=== PATIENT | female | born 1940 | race Caucasian/White ===

== ENCOUNTER 2016-12-05 08:31 | Day surgery (SDC) | payer MEDICARE, OTHER ==
[~2016-12-05 08:31] MED LIST: BALANCED SALT IRRIG SOLN COMB1 500 ML, EPINEPHRINE-PF 1:1000 1 MG IO ONE; IRR STERIL WATER FOR IRR 1000 ML BOTTLE IR ONE; LABETALOL HCL 100 MG/20 ML VIAL MC ONE; PROPOFOL 200 MG/20 ML BOTTLE IV ONE
[2016-12-05] MEDS ORDERED: TETRACAINE HCL 0.5% OPHT DROP 2 ML BOTTLE ONE ×2 (08:52→09:35)
[2016-12-05] MEDS ORDERED: PHENYLEPHRINE 2.5% OPHT DROP 2 ML BOTTLE ONE (08:53)
[2016-12-05] MEDS ORDERED: CIPROFLOXACIN 0.3% OPHT DROP 2.5 ML BOTTLE ONE (08:53)
[2016-12-05] MEDS ORDERED: CYCLOPENTOLATE 1% OPHT DROP 2 ML BOTTLE ONE (08:53)
[2016-12-05] MEDS ORDERED: FLURBIPROFEN 0.03% OPHT DROP 2.5 ML BOTTLE ONE (08:53)
[2016-12-05 09:12] LABS: BASOPHILS # (AUTO) 0.1 K/uL (0.0-0.2); BASOPHILS % (AUTO) 0.8 % (0.0-2.0); EOSINOPHILS # (AUTO) 0.2 K/uL (0.0-0.7); EOSINOPHILS % (AUTO) 2.7 % (0.0-7.0); HEMATOCRIT 37.6 % (37.0-47.0); HEMOGLOBIN 12.5 g/dL (12.0-16.0); LYMPHOCYTES # (AUTO) 2.7 K/uL (0.8-4.8); LYMPHOCYTES % (AUTO) 39.5 % (20.5-51.5); MEAN CORPUSCULAR HGB CONC 33 g/dL (32.0-37.0); MEAN CORPUSCULAR VOLUME 84.4 fL (81.0-99.0); MONOCYTES # (AUTO) 0.4 K/uL (0.1-1.30); MONOCYTES % (AUTO) 6.2 % (0.0-11.0); NEUTROPHILS # (AUTO) 3.5 K/uL (1.8-8.9); NEUTROPHILS % (AUTO) 50.8 % (38.5-71.5); PLATELET COUNT (AUTO) 205 K/uL (150-450); RED BLOOD CELL COUNT(AUTO) 4.45 MIL/uL (4.20-5.40); RED CELL DISTRIBUTION WIDTH 12.4 % (11.5-14.5); WHITE BLOOD COUNT (AUTO) 6.9 K/uL (4.0-11.2)
[2016-12-05 09:16] LABS: *BILIRUBIN,URIN NEGATIVE (NEGATIVE); *BLOOD, URINE Trace-intact (NEGATIVE); *COLOR,URINE YELLOW (YELLOW); *KETONES,URINE NEGATIVE (NEGATIVE); *PROTEIN,URINE NEGATIVE (NEGATIVE); *UROBILINOGEN,URINE 0.2 E.U./dl (NORMAL); NITRITE, URINE NEGATIVE (NEGATIVE); UGLUCOSE TRACE (NEGATIVE)
[2016-12-05 09:22] LABS: CALCIUM 9.2 mg/dL (8.5-10.1); POTASSIUM 4.1 mmol/L (3.5-5.1)
[2016-12-05 09:24] LABS: *CLARITY,URINE HAZY (CLEAR); LEUKOCYTE ESTERASE ,URINE TRACE (NEGATIVE)
[2016-12-05 09:26] LABS: BACTERIA,URINE MODERATE /HPF (NONE SEEN); MUCUS,URINE FEW /LPF (0-FEW); RBC,URINE 0-3 /HPF (0-3); SQUAMOUS EPITHELIAL CELL,UR MANY /HPF (NONE SEEN); YEAST,URINE FEW /HPF (NONE SEEN)
[2016-12-05 09:29] LABS: CREATININE 1.4 mg/dL (0.6-1.3)
[2016-12-05] MEDS ORDERED: NEO/POLYMYX B/DEXAME OPHT OINT 3.5 GM TUBE ONE (09:35)
[2016-12-05] MEDS ORDERED: PILOCARPINE 1% OPHT DROP 15 ML BOTTLE ONE (09:35)
[2016-12-05] MEDS ORDERED: LIDOCAINE HCL-MPF 1% 5 ML VIAL ONE (09:36)
[2016-12-05] MEDS ORDERED: BALANCED SALT IRRIG SOLN COMB2 15 ML IRRIG.SOLN ONE (09:36)
[2016-12-05] MEDS ORDERED: EPINEPHRINE 1 MG/1 ML AMP ONE (09:36)
[2016-12-05] MEDS ORDERED: BUPIVACAINE PF 0.5% 30 ML VIAL ONE (09:37)
[2016-12-05] MEDS ORDERED: HYALURONATE SODIUM 8.5 MG/0.85 ML DISP.SYRIN ONE (09:37)
[2016-12-05] MEDS ORDERED: ONDANSETRON 4 MG/2 ML VIAL ONE (09:51)
[2016-12-05] MEDS ORDERED: hydrALAZINE HCL 20 MG/1 ML VIAL ONE (09:51)
== END 2016-12-05 12:15 | disposition home or self-care (01) ==
LOC: DS 08:31
PROVIDERS: ATTEND Dermatology MOHS-Micrographic Surgery
DX: H25.9 Unspecified age-related cataract (principal); M19.90 Unspecified osteoarthritis, unspecified site; I12.9 Hypertensive chronic kidney disease with stage 1 through stage 4 chronic kidney disease, or unspecified chronic kidney disease; N18.9 Chronic kidney disease, unspecified; E11.9 Type 2 diabetes mellitus without complications
CPT/HCPCS: 36415; 71010; 85025; 85730; 93005; A4217; A4663; J0171; J0360; J2405; J3490; J3590; J7030; J7120; J7321; V2632

== ENCOUNTER 2016-12-19 07:21 | Day surgery (SDC) | payer MEDICARE, OTHER ==
[~2016-12-19 07:21] MED LIST changes: -IRR STERIL WATER FOR IRR 1000 ML BOTTLE IR ONE; -LABETALOL HCL 100 MG/20 ML VIAL MC ONE; -PROPOFOL 200 MG/20 ML BOTTLE IV ONE
[2016-12-19] MEDS ORDERED: TETRACAINE HCL 0.5% OPHT DROP 2 ML BOTTLE ONE ×2 (07:39→07:50)
[2016-12-19] MEDS ORDERED: FLURBIPROFEN 0.03% OPHT DROP 2.5 ML BOTTLE ONE ×2 (07:39→07:41)
[2016-12-19] MEDS ORDERED: PHENYLEPHRINE 2.5% OPHT DROP 2 ML BOTTLE ONE (07:40)
[2016-12-19] MEDS ORDERED: CYCLOPENTOLATE 1% OPHT DROP 2 ML BOTTLE ONE (07:40)
[2016-12-19] MEDS ORDERED: CIPROFLOXACIN 0.3% OPHT DROP 2.5 ML BOTTLE ONE (07:40)
[2016-12-19] MEDS ORDERED: NEO/POLYMYX B/DEXAME OPHT OINT 3.5 GM TUBE ONE (07:49)
[2016-12-19] MEDS ORDERED: PILOCARPINE 1% OPHT DROP 15 ML BOTTLE ONE (07:49)
[2016-12-19] MEDS ORDERED: LIDOCAINE HCL-MPF 1% 5 ML VIAL ONE (07:50)
[2016-12-19] MEDS ORDERED: BUPIVACAINE PF 0.5% 30 ML VIAL ONE (07:50)
[2016-12-19] MEDS ORDERED: EPINEPHRINE 1 MG/1 ML AMP ONE (07:50)
[2016-12-19] MEDS ORDERED: BALANCED SALT IRRIG SOLN COMB2 15 ML IRRIG.SOLN ONE (07:50)
[2016-12-19] MEDS ORDERED: HYALURONATE SODIUM 8.5 MG/0.85 ML DISP.SYRIN ONE (07:51)
[2016-12-19 08:08] LABS: HEMATOCRIT 33.5 % (37.0-47.0); HEMOGLOBIN 10.9 g/dL (12.0-16.0); MEAN CORPUSCULAR HEMOGLOBIN 27.8 uug (27.0-31.0); MEAN CORPUSCULAR HGB CONC 33 g/dL (32.0-37.0); MEAN CORPUSCULAR VOLUME 85.2 fL (81.0-99.0); PLATELET COUNT (AUTO) 207 K/uL (150-450); RED BLOOD CELL COUNT(AUTO) 3.93 MIL/uL (4.20-5.40); RED CELL DISTRIBUTION WIDTH 12.5 % (11.5-14.5); WHITE BLOOD COUNT (AUTO) 5.8 K/uL (4.0-11.2)
[2016-12-19 08:09] LABS: *BILIRUBIN,URIN NEGATIVE (NEGATIVE); *BLOOD, URINE NEGATIVE (NEGATIVE); *CLARITY,URINE CLEAR (CLEAR); *COLOR,URINE YELLOW (YELLOW); *KETONES,URINE NEGATIVE (NEGATIVE); *PROTEIN,URINE NEGATIVE (NEGATIVE); *UROBILINOGEN,URINE 0.2 E.U./dl (NORMAL); LEUKOCYTE ESTERASE ,URINE 1+ (NEGATIVE); NITRITE, URINE NEGATIVE (NEGATIVE); PH,URINE 5.5 (5.0-8.0); UGLUCOSE TRACE (NEGATIVE)
[2016-12-19 08:21] LABS: BACTERIA,URINE MODERATE /HPF (NONE SEEN); SQUAMOUS EPITHELIAL CELL,UR MANY /HPF (NONE SEEN)
[2016-12-19 08:23] LABS: CALCIUM 8.7 mg/dL (8.5-10.1); CREATININE 1.2 mg/dL (0.6-1.3); POTASSIUM 4.4 mmol/L (3.5-5.1)
[2016-12-19 08:36] LABS: EOSINOPHILS % (MANUAL) 4 % (0-8); LYMPHOCYTES % (MANUAL) 32 % (20-40); MONOCYTES % (MANUAL) 3 % (2-10); NEUTROPHILS % (MANUAL) 61 % (42-75)
[2016-12-19 08:37] LABS: PLATELET ESTIMATE ADEQU
[2016-12-19] MEDS ORDERED: LIDOCAINE HCL 2% 20 ML VIAL MC ONE (08:37)
[2016-12-19] MEDS ORDERED: PROPOFOL 200 MG/20 ML BOTTLE IV ONE (08:37)
[2016-12-19] MEDS ORDERED: hydrALAZINE HCL 20 MG/1 ML VIAL IV ONE (08:37)
[2016-12-19] MEDS ORDERED: IV LACTATED RINGERS SOLUTION 1,000 ML BAG IV ONE (08:38)
[2016-12-19] MEDS ORDERED: ACETAMINOPHEN 325 MG TABLET ONE (10:43)
== END 2016-12-19 11:10 | disposition home or self-care (01) ==
LOC: DS 07:21
PROVIDERS: ATTEND Dermatology MOHS-Micrographic Surgery
DX: H25.9 Unspecified age-related cataract (principal); I10 Essential (primary) hypertension; E11.9 Type 2 diabetes mellitus without complications
CPT/HCPCS: 36415; 85025; 85730; A4663; J0171; J0360; J3490; J3590; J7030; J7120; J7321; V2632